=== PATIENT | male | born 2000 | race Caucasian/White ===

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

== ENCOUNTER 2019-12-31 11:04 | Emergency (ER) | payer OTHER ==
[2019-12-31 11:20] VITALS: BP 126/89; PULSE 114; TEMP 98.3; BMI 31.3
[2019-12-31] MEDS ORDERED: ALBUTEROL SO4 2.5/IPRATROPIUM 0.5 INH SOL 3 ML VIAL.NEB. NEB ONE ×2 (11:20→11:22)
[2019-12-31] MEDS ORDERED: predniSONE 20 MG TABLET (UD) PO ONE (11:20)
[2019-12-31] MEDS ORDERED: predniSONE 20 MG TABLET (UD) ONE (11:22)
--- NOTE | 2019-12-31 12:23 | PDOC ---
History of Present Illness - General Chief Complaint: Respiratory Stated Complaint: COUGHING Time Seen by Provider: 12/31/19 11:05 - History of Present Illness Initial Comments: 12/31/19 12:19 19 years old with past medical history significant for asthma presents to the emergency department 3 to 4-day history of URI symptoms complicated by mild asthma exacerbation patient has tried his breathing treatments at home with no significant improvement Cough is worse at night mild wheezing alleviated by his inhaler but then returns No travel no sick contacts Past History - Past Medical History Allergies/Adverse Reactions: Allergies Allergy/AdvReac Type Severity Reaction Status Date / Time No Known Drug Allergies Allergy Verified 12/31/19 11:05 Home Medications: Ambulatory Orders Guaifenesin/Dextromethorphan [Cough Dm Syrup] 118 ml PO PRN PRN 12/31/19 Loratadine [Claritin] 10 mg PO DAILY 12/31/19 Asthma: Yes COPD: No - Immunization History Immunization Up to Date: Yes - Psycho Social/Smoking Cessation Hx Smoking Status: No Smoking History: Never smoked Have you smoked in the past 12 months: No Number of Cigarettes Smoked Daily: 0 Information on smoking cessation initiated: No Hx Alcohol Use: No Drug/Substance Use Hx: No Substance Use Type: None Review of Systems - Review of Systems Comments:: 12/31/19 12:20 ROS: A complete review of 10 out of 10 review of systems is taken and is negative apart from what is previously mentioned below and in the HPI. *Physical Exam - Vital Signs Last Vital Signs Temp Pulse Resp BP Pulse Ox 98.3 F 114 H 16 126/89 97 12/31/19 11:04 12/31/19 11:04 12/31/19 11:04 12/31/19 11:04 12/31/19 11:04 - Physical Exam 12/31/19 12:20 Vitals: Triage Vital signs reviewed General Appearance: No acute distress, well nourished well developed, Head: Atraumatic, Cardiac: Regular rate and rhythym, no murmurs, no rubs, no gallops, Lungs: mild end expiratory wheeze Abdomen: Soft, non distended, normal bowel sounds, non tender to palpation Extremities: Full range of motion to all extremities, no cyanosis, clubbing, or edema Skin: Warm and dry, no rashes or lesions, no rash, no petechiae Psych: Normal mood, normal affect ED Treatment Course - RADIOLOGY Radiology Studies Ordered: Category Date Time Status CHEST PA & LAT [RAD] Stat Radiology 12/31/19 11:21 Taken - Medications Given in the ED: ED Medications Discontinued Medications Generic Name Dose Route Start Last Admin Trade Name Osmani PRN Reason Stop Dose Admin Albuterol/Ipratropium 1 amp 12/31/19 11:20 12/31/19 11:28 Duoneb - NEB 12/31/19 11:21 1 amp ONCE ONE Administration Prednisone 40 mg 12/31/19 11:20 12/31/19 11:28 Deltasone - PO 12/31/19 11:21 40 mg ONCE ONE Administration Medical Decision Making - Medical Decision Making 12/31/19 12:21 Well-appearing no apparent distress URI complicated by mild asthma exacerbation steroids and nebs given chest x-ray ordered no acute infiltrate noted Patient feels better after steroids and nebs will discharge home on 3-day course of prednisone he has an inhaler at home Findings, the need for follow-up and strict return instructions discussed with patient. Discharge - Discharge Information Problems reviewed: Yes Clinical Impression/Diagnosis: URI (upper respiratory infection) Qualifiers: URI type: unspecified URI Qualified Code(s): J06.9 - Acute upper respiratory infection, unspecified Condition: Fair - Admission No - Follow up/Referral - Patient Discharge Instructions Patient Printed Discharge Instructions: DI for Viral Upper Respiratory Infection -- Adult Additional Instructions: Drink plenty fluids. Prednisone as prescribed. Take your home metered-dose inhaler every 3-4 hours as needed. Follow-up with your doctor this week. Return to ED for any severe worsening symptoms or for any concerns. - Post Discharge Activity
== END 2019-12-31 12:37 | disposition home or self-care (01) ==
LOC: FER 11:04
PROC: 3E0F7GC Introduction of Other Therapeutic Substance into Respiratory Tract, Via Natural or Artificial Opening (ICD-10-PCS; principal; 2019-12-31)
DX: J06.9 Acute upper respiratory infection, unspecified (principal)
CPT/HCPCS: 71046-TC-FY; 94640; 99283-25

== ENCOUNTER 2020-10-25 08:48 | Emergency (ER) | payer OTHER ==
[2020-10-25] MEDS ORDERED: ACETAMINOPHEN 500 MG TABLET (FP) PO ONE (09:06)
[2020-10-25 09:16] VITALS: BP 134/72; PULSE 67; TEMP 99; BMI 31.3
[2020-10-25] MEDS ORDERED: ACETAMINOPHEN 500 MG TABLET (FP) ONE (09:25)
== END 2020-10-25 09:50 | disposition home or self-care (01) ==
LOC: FER 08:48
DX: J02.9 Acute pharyngitis, unspecified (principal); B34.9 Viral infection, unspecified; Z03.818 Encounter for observation for suspected exposure to other biological agents ruled out
CPT/HCPCS: 99283-25; C9803; U0003

== ENCOUNTER 2021-03-01 15:44 | Emergency (ER) | payer OTHER | END 2021-03-01 16:57 | disposition home or self-care (01) | LOC: JVIRT 15:44 | DX: Z11.52 Encounter for screening for COVID-19 (principal) | CPT/HCPCS: G2251-GT; Q3014-GT ==

== ENCOUNTER 2021-09-01 08:22 | Emergency (ER) | payer OTHER ==
[2021-09-01 08:28] VITALS: BP 145/90; PULSE 84; TEMP 98; BMI 30.4
[2021-09-02 13:11] LABS: SARS-CoV-2 NAA Not Detected (Not Detected)
== END 2021-09-01 09:10 | disposition home or self-care (01) ==
LOC: FER 08:22
DX: R05.9 Cough, unspecified (principal); J06.9 Acute upper respiratory infection, unspecified; J02.9 Acute pharyngitis, unspecified
CPT/HCPCS: 87070; 99283-25; C9803; U0003; U0005